=== PATIENT | female | born 1960 | race Caucasian/White ===

== ENCOUNTER → 2019-12-08 | Outpatient (CLI) | payer OTHER ==
[2019-12-08 20:02] LABS: Hematocrit 34.7 % (33.0-51.0); Hemoglobin 10.4 g/dL (11.5-16.0); Mean Corpuscular HGB 24.4 pg (26.0-34.0); Mean Corpuscular Volume 82 fL (80-100); Platelet Count 407 K/mm3 (150-400); RDW Coefficient Variation 17.8 % (11.7-14.2); RDW Standard Deviation 53.2 fL (35.1-46.3); Red Blood Cell Count 4.26 M/mm3 (3.80-5.20); White Blood Cell Count 10.13 K/mm3 (4.00-11.30)
[2019-12-08 20:15] LABS: Alanine Aminotransfer (ALT/SGP 27 U/L (12-78); Albumin/Globulin Ratio 0.7 (0.8-1.8); Alk Phos 102 U/L (50-136); Anion Gap 4 mmol/L (6-16); Aspartate Aminotrans (AST/SGOT 18 U/L (12-37); Bilirubin, Total 0.3 mg/dL (0.1-1.0); Blood Urea Nitrogen 25 mg/dL (8-24); Bun/Creatinine Ratio 29.4 (12.0-20.0); CO2, Blood 32 mmol/L (21-32); Calcium, Blood 8.6 mg/dL (8.5-10.1); Chloride, Blood 107 mmol/L (98-108); Creatinine, Blood 0.85 mg/dL (0.40-1.00); Globulin, Blood 4.3 g/dL (2.2-4.0); Glomerular Filtration Rate >60 (60-); Glucose, Blood 121 mg/dL (70-99); Sodium, Blood 143 mmol/L (136-145); Total Protein, Blood 7.3 g/dL (6.4-8.2)
== END ==
LOC: LAB 19:54 → LAB SHORT 19:54
PROVIDERS: Nurse Practitioner
DX: E11.9 Type 2 diabetes mellitus without complications (principal)
CPT/HCPCS: 80053; 83036; 85027

== ENCOUNTER 2023-03-21 08:00 | Day surgery (SDC) | payer OTHER ==
[~2023-03-21] VITALS: Ht 165.1 cm; Wt 103.8 kg
[~2023-03-21 08:00] MED LIST: ALPR1; ASCO500 PO; Accupril20 MG PO; Amitriptyline H10 MG PO; BACL10 PO; CALCIUM CIT 311 EAC7; CALCIUM CIT 311 EAC7 PO; CIME400 PO; CLOP75 PO; CYAN1000I IM; DICY20 PO; DOCU100 PO; EZET10; FAMO20 PO; FARXIGA10 MG; FERROUS SULFAT325 M3 PO; FURO40 PO; KAPSPARGO SPRIN50 MG PO; LEVSOD75 PO; MULTIPLE VITAM1 EACH PO; NOVOLOG100 UNIT/2; PRAVASTATIN SOD40 MG PO; PREG150 PO; SUCR1 PO; TRAM50 PO; VITAMIN D325 MC3 PO
[2023-03-21 10:42] LABS: Albumin, Blood 3.5 g/dL (3.4-5.0); Albumin/Globulin Ratio 0.9 (0.8-1.8); Bilirubin, Total 0.7 mg/dL (0.1-1.0); Bun/Creatinine Ratio 22.5 (12.0-20.0); Creatinine, Blood 1.2 mg/dL (0.40-1.00); Globulin, Blood 3.9 g/dL (2.2-4.0); Potassium, Blood 4.6 mmol/L (3.5-5.5); Total Protein, Blood 7.4 g/dL (6.4-8.2)
[2023-03-21] MEDS ORDERED: Enalapril Malea20 MG PO (11:17)
[2023-03-21] MEDS ORDERED: METO50ER (11:18)
--- NOTE | 2023-03-21 11:29 | NUR ---
03/21/23 1129 Adamaris Wells CHEM PANEL DRAWN AT 1017, BLOOD GLUCOSE FROM CHEM PANEL 120
--- NOTE | 2023-03-21 14:25 | NUR ---
03/21/23 1425 PILAR YANG TRIAL OFF O2. CURRENTLY 100% ON 10L
--- NOTE | 2023-03-21 14:48 | NUR ---
03/21/23 0969 EDINSON GAO PT UP TO BATHROOM. MIKAEL ASSISTING PT IN BR. PT DENIES PAIN AND NAUSEA. PT IS NON-WT BEARING. PT HAS CRUTCHES AT HOME IN HER RV BUT IS GOING HOME BY DIAL A RIDE. SHE IS GOING TO HAVE DIAL A RIDE ALSO RUN BY HER PHARMACY TO DROP OFF HER RX. SHE HAS NO PLAN ON HOW SHE WILL GET INTO HER RV TO GET HER CRUTCHES OR WHO CAN RAD TECHNOLOGIST HER RX. WE WILL WORK WITH HER TO SEE IF WE CAN COME UP WITH A SOLUTION.
[2023-03-21 15:45] VITALS: BP 153/56
== END 2023-03-21 16:05 | disposition home or self-care (01) ==
LOC: ORSCSDS 08:00
PROVIDERS: Podiatrist Foot & Ankle Surgery
PROC: 0SGM04Z Fusion of Right Metatarsal-Phalangeal Joint with Internal Fixation Device, Open Approach (ICD-10-PCS; principal; 2023-03-21 12:00)
DX: M20.31 Hallux varus (acquired), right foot (principal); I25.10 Atherosclerotic heart disease of native coronary artery without angina pectoris; E10.42 Type 1 diabetes mellitus with diabetic polyneuropathy; Z87.891 Personal history of nicotine dependence; E66.9 Obesity, unspecified; Z68.38 Body mass index [BMI] 38.0-38.9, adult; Z79.899 Other long term (current) drug therapy; Z79.02 Long term (current) use of antithrombotics/antiplatelets; E10.22 Type 1 diabetes mellitus with diabetic chronic kidney disease; I12.9 Hypertensive chronic kidney disease with stage 1 through stage 4 chronic kidney disease, or unspecified chronic kidney disease; N18.2 Chronic kidney disease, stage 2 (mild); Z79.4 Long term (current) use of insulin
CPT/HCPCS: 80053; A9270; C1713; J2704; J2795; J3010; J7120

== ENCOUNTER 2023-12-24 09:12 | Inpatient (IN) | payer OTHER ==
[~2023-12-24] VITALS: Ht 165.1 cm; Wt 101.1 kg
[~2023-12-24 09:12] MED LIST changes: +Enalapril Malea20 MG PO; +METO50ER
[2023-12-24 11:01] LABS: BASOPHILS ABSOLUTE AUTO 0.05 K/mm3 (0.00-0.23); BASOPHILS PERCENT AUTO 1 % (0-2); EOSINOPHILS ABSOLUTE AUTO 0.65 K/mm3 (0.00-0.68); EOSINOPHILS PERCENT AUTO 9 % (0-6); Hematocrit 32.7 % (33.0-51.0); Hemoglobin 10.7 g/dL (11.5-16.0); IMMATURE GRAN ABSOLUTE AUTO 0.02 K/mm3 (0.00-0.10); IMMATURE GRAN PERCENT AUTO 0 % (0-1); LYMPHOCYTES ABSOLUTE AUTO 2.16 K/mm3 (0.84-5.20); LYMPHOCYTES PERCENT AUTO 29 % (21-46); MONOCYTES ABSOLUTE AUTO 0.76 K/mm3 (0.16-1.47); MONOCYTES PERCENT AUTO 10 % (4-13); Mean Corpuscular HGB 29.7 pg (26.0-34.0); Mean Corpuscular HGB Conc 32.7 g/dL (31.5-36.5); Mean Corpuscular Volume 91 fL (80-100); NEUTROPHILS ABSOLUTE AUTO 3.78 K/mm3 (1.96-9.15); NEUTROPHILS PERCENT AUTO 51 % (41-73); Platelet Count 225 K/mm3 (150-400); RDW Coefficient Variation 12.7 % (11.7-14.2); RDW Standard Deviation 42.3 fL (35.1-46.3); White Blood Cell Count 7.42 K/mm3 (4.00-11.30)
[2023-12-24 11:21] LABS: Magnesium, Blood 2.6 mg/dL (1.6-2.4)
[2023-12-24 11:22] LABS: Albumin, Blood 3.3 g/dL (3.4-5.0); Albumin/Globulin Ratio 0.9 (0.8-1.8); Bilirubin, Total 0.5 mg/dL (0.1-1.0); Creatinine, Blood 2.48 mg/dL (0.40-1.00); Globulin, Blood 3.7 g/dL (2.2-4.0); Potassium, Blood 5.1 mmol/L (3.5-5.5)
[2023-12-24 11:33] LABS: Free Thyroxine 1.02 ng/dL (0.70-1.60); Thyroid Stimulating Hormone 2.58 uIU/mL (0.360-4.800)
[2023-12-24] MEDS ORDERED: NS 1,000 ML IV SCH ×2 (11:40→13:15)
[2023-12-24] MEDS ORDERED: Acetaminophen 325 MG TABLET PO PRN (13:20)
[2023-12-24] MEDS ORDERED: NS 1,000 ML IV ONE (13:20)
[2023-12-24] MEDS ORDERED: TraMADol HCl 50 MG Tab PO PRN (13:25)
[2023-12-24 14:56] VITALS: BP 142/53
[2023-12-24] MEDS ORDERED: METO50ER PO (15:21)
[2023-12-24] MEDS ORDERED: ENAL10 PO (15:22)
[2023-12-24] MEDS ORDERED: PRAV20 PO (15:22)
[2023-12-24] MEDS ORDERED: FURO40 PO (15:22)
[2023-12-24] MEDS ORDERED: FAMO20 PO (15:23)
[2023-12-24] MEDS ORDERED: EZET10 PO (15:23)
[2023-12-24] MEDS ORDERED: TRAM50 PO (15:24)
[2023-12-24] MEDS ORDERED: PREG150 PO (15:24)
[2023-12-24] MEDS ORDERED: LEVSOD75 PO (15:25)
[2023-12-24] MEDS ORDERED: LAMO100 PO (15:25)
[2023-12-24] MEDS ORDERED: B-12 COMPL1000 MCG/2 IM (15:26)
[2023-12-24] MEDS ORDERED: Bentyl20 MG PO (15:27)
[2023-12-24] MEDS ORDERED: IRON18 MG PO (15:28)
[2023-12-24] MEDS ORDERED: SUCR1 PO (15:28)
[2023-12-24] MEDS ORDERED: Vitamin C100 M1 (15:29)
[2023-12-24] MEDS ORDERED: VITAMIN D5000 UNIT PO (15:29)
[2023-12-24] MEDS ORDERED: DOCU100 PO (15:30)
[2023-12-24] MEDS ORDERED: MULVITA PO (15:30)
[2023-12-24] MEDS ORDERED: CALCIUM CIT 311 EAC7 PO (15:30)
[2023-12-24] MEDS ORDERED: Betamethasone D30 ML TOP (15:32)
[2023-12-24] MEDS ORDERED: Insulin Human Lispro 100 Units/ML 3ML Syringe SC SCH ×2 (16:30→17:00)
[2023-12-24] MEDS ORDERED: Sucralfate 1 GM Tab PO SCH (17:00)
[2023-12-24 17:37] LABS: Source, Urine Clean Catch
[2023-12-24 17:39] LABS: Appearance, Urine Hazy (Clear); Bilirubin, Urine Neg (Neg); Blood, Urine 1+ (Neg); Color, Urine Yellow (P-Yellow); Glucose Qualitative, Urine Neg (Neg); Ketones, Urine Neg (Neg); Leukocyte Esterase, Urine 2+ (Neg); Nitrite, Urine Pos (Neg); Protein, Urine Neg (Neg); Specific Gravity, Urine 1.015 (1.003-1.022); Urobilinogen, Urine NORM (Normal)
--- NOTE | 2023-12-24 17:46 | NUR ---
MS BERGER WAS ADMITTED TO MEDICAL FROM ER AT 1440HRS. SHE HAS AN INSULIN PUMP ON HER ABDOMEN. PT IS ABLE TO TELL MYSELF AND DR KWON THE SETTINGS AND THERE IS AN DURGA ON HER PHONE FOR IT, BUT THE UNIT ITSELF IS AN OMNIPOD SO DOSAGE CAN NOT BE VISUALISED ON THE PUMP. AT 1545 BLOOD GLUCOSE WAS 46. PT WAS ASYMPTOMOTIC. SHE ATE A SNACK AND RECHECK BLOOD GLUCOSE 30 MINUTES LATER WAS 73 AT [address] KWON DISCUSSED REMOVING THE INSULIN PUMP WITH MS BERGER. PT CONCERNED ABOUT REMOVING THE INSULIN PUMP AND HAVING HIGH/IRREGULAR BLOOD SUGARS. SHE SAID THAT SHE HAD NOT EATEN ALL DAY DUE TO BEING IN THE ER. AFTER DISCUSSION DR KWON AND PT AGREED TO KEEP INSULIN PUMP ON AND PT WILL ALLOW MORE FREQUENT BLOOD GLUCOSE TESTING NEEDED. DR KWON EDUCATED PT THAT THERE IS A RISK FOR HYPOGLYCEMIA WITH THE PUMP GOING, AND NOTED THAT PT WAS ASYMPTOMATIC WITH BLOOD GLUCOSE OF 46. MS BERGER VOICED UNDERSTANDING. MS HICKS IS UNSTEADY WHEN STANDING. SHE WALKS WITH A CANE, SOMETIMES CRUTCHES, SOMETIMES A WALKER AT HOME. SHE HAS BEEN EDUCATED ON FALL PRECAUTIONS, TO CALL FOR ASSISTANCE BEFORE GETTING OUT OF BED, BED ALARM USE. SHE WALKED TO THE BATHROOM WITH RN, WITH WALKER, STANDBY ASSISTANCE. RN STAYED IN ROOM WITH HER. WHEN WALKING BACK TO BED FROM THE BATHROOM SHE HAD A WITNESSED TRIP AND WENT DOWN ONTO HER KNEES. SHE DENIED ANY PAIN FROM THE EVENT. DR KWON WAS NOTIFIED. MS HICKS WAS ABLE TO STAND AND WALK BACK INTO BED WITH THE WALKER AND STAND BY ASSISTANCE. MS HICKS HAS HEALING ABRASIONS ON HER FEET AND LEGS FROM FALLS PRIOR TO ADMISSION. ACK IN BED, BED IN LOW POSITION, CALL LIGHT IN REACH, BED ALARM ON.
[2023-12-24 17:53] LABS: Bacteria Many /hpf; Red Blood Cells, Urine 0-2 /hpf (0-2); Squamous Epithelial Cells Few /hpf (Few)
[2023-12-24 19:16] VITALS: BP 136/65
[2023-12-24 19:44] LABS: Albumin, Blood 2.6 g/dL (3.4-5.0); Anion Gap 9 mmol/L (3-11); Blood Urea Nitrogen 46 mg/dL (8-24); Bun/Creatinine Ratio 22.1 (12.0-20.0); CO2, Blood 22 mmol/L (21-32); Calcium, Blood 8.2 mg/dL (8.5-10.1); Chloride, Blood 117 mmol/L (98-108); Creatinine, Blood 2.08 mg/dL (0.40-1.00); Glomerular Filtration Rate 26 (60-); Glucose, Blood 90 mg/dL (70-99); Phosphorus, Blood 4.2 mg/dL (2.5-4.9); Potassium, Blood 4.7 mmol/L (3.5-5.5); Sodium, Blood 143 mmol/L (136-145)
[2023-12-24] MEDS ORDERED: Pravastatin Sodium 20 MG Tab PO SCH (21:00)
[2023-12-24] MEDS ORDERED: Famotidine 20 MG Tab PO SCH (21:00)
[2023-12-24] MEDS ORDERED: Pregabalin 75 MG Cap PO SCH (21:00)
[2023-12-24] MEDS ORDERED: Dicyclomine HCl 20 MG Tab PO SCH (21:00)
[2023-12-24] MEDS ORDERED: Cetirizine HCl10 MG PO (21:43)
[2023-12-24] MEDS ORDERED: [UNRECOGNIZED DRUG - SUPPLY] SC (21:47)
[2023-12-24] MEDS ORDERED: MUPIROCIN2210 TOP (21:51)
[2023-12-25 02:52] VITALS: BP 122/47
[2023-12-25 05:57] LABS: BASOPHILS ABSOLUTE AUTO 0.03 K/mm3 (0.00-0.23); BASOPHILS PERCENT AUTO 1 % (0-2); EOSINOPHILS ABSOLUTE AUTO 0.47 K/mm3 (0.00-0.68); EOSINOPHILS PERCENT AUTO 8 % (0-6); Hematocrit 27.8 % (33.0-51.0); Hemoglobin 9.1 g/dL (11.5-16.0); IMMATURE GRAN ABSOLUTE AUTO 0.02 K/mm3 (0.00-0.10); IMMATURE GRAN PERCENT AUTO 0 % (0-1); LYMPHOCYTES PERCENT AUTO 33 % (21-46); MONOCYTES ABSOLUTE AUTO 0.59 K/mm3 (0.16-1.47); MONOCYTES PERCENT AUTO 10 % (4-13); Mean Corpuscular HGB 30.2 pg (26.0-34.0); Mean Corpuscular HGB Conc 32.7 g/dL (31.5-36.5); Mean Corpuscular Volume 92 fL (80-100); Mean Platelet Volume 10.1 fL (9.1-12.4); NEUTROPHILS ABSOLUTE AUTO 3.02 K/mm3 (1.96-9.15); NEUTROPHILS PERCENT AUTO 49 % (41-73); Platelet Count 190 K/mm3 (150-400); RDW Coefficient Variation 12.7 % (11.7-14.2); RDW Standard Deviation 42.6 fL (35.1-46.3); Red Blood Cell Count 3.01 M/mm3 (3.80-5.20); White Blood Cell Count 6.13 K/mm3 (4.00-11.30)
[2023-12-25] MEDS ORDERED: Levothyroxine Sodium 0.075 MG Tab PO SCH (06:00)
[2023-12-25 07:19] VITALS: BP 108/45
[2023-12-25] MEDS ORDERED: Ezetimibe 10 MG Tab PO SCH (09:00)
[2023-12-25] MEDS ORDERED: Docusate Sodium 100 MG Cap PO SCH (09:00)
[2023-12-25] MEDS ORDERED: Enoxaparin 30 MG/0.3 ML SYR SC SCH (09:00)
[2023-12-25] MEDS ORDERED: Ascorbic Acid 500 MG Tab PO SCH (09:00)
[2023-12-25] MEDS ORDERED: Metoprolol Succinate 50 MG TABCR PO SCH (09:00)
[2023-12-25] MEDS ORDERED: Ferrous Sulfate 325 MG Tab PO SCH (09:00)
[2023-12-25] MEDS ORDERED: Multivitamins/Minerals TAB PO SCH (09:00)
[2023-12-25] MEDS ORDERED: Clopidogrel Bisulfate 75 MG Tab PO SCH (09:00)
[2023-12-25] MEDS ORDERED: Calcium Citrate 315 MG/Vitamin D 250 IU Tab PO SCH (09:00)
[2023-12-25 14:23] LABS: Bun/Creatinine Ratio 22.1 (12.0-20.0); Calcium, Blood 8.2 mg/dL (8.5-10.1); Creatinine, Blood 1.99 mg/dL (0.40-1.00)
[2023-12-25 15:19] VITALS: BP 156/72
[2023-12-25] MEDS ORDERED: NS 1,000 ML IV SCH (16:35)
[2023-12-25] MEDS ORDERED: Sucralfate 1 GM Tab PO PRN (16:59)
[2023-12-25] MEDS ORDERED: Dicyclomine HCl 20 MG Tab PO PRN (16:59)
--- NOTE | 2023-12-25 17:28 | NUR ---
SHIFT SUMMARY PT UP TO BATHROOM WITH 1 PERSON ASSIST USING FWW. VOIDING LARGE AMOUNTS AT A TIME. UP TO CHAIR THIS AFTERNOON. HOPED TO GO HOME TODAY BUT KIDNEY FUNCTION NEEDS IMPROVEMENT ACCORDING TO MD AND PT NOTIFIED. HAS DENIED PAIN OR NAUSEA THROUGH THE DAY. MEDICATED SELF WITH HER OWN INSULIN PUMP WHEN SHE KNOWS WHAT HER BLOOD GLUCOSE IS.
[2023-12-25 19:23] VITALS: BP 133/56
[2023-12-25] MEDS ORDERED: Insulin Pump Cartridge MISC SC SCH (21:00)
[2023-12-25] MEDS ORDERED: Famotidine 20 MG Tab PO SCH (21:00)
[2023-12-26 02:39] VITALS: BP 142/45
--- NOTE | 2023-12-26 04:37 | NUR ---
END OF SHIFT SUMMARY PT A&O x4, VSS, AFEBRILE. PT ON RA, NO SIGNS OF RESP DISTRESS, RESP RATE EVEN AND UNLABORED. PT HAS NEW IV TO L WRIST RUNNING CONTINUOUS FLUIDS, NS AT 100mL/HR. PT PLEASANT AND COOPERATIVE WITH CARE PROVIDED. PT ADMITTED FOR [facility]. PT HAS A OMNIPOD INSULIN PUMP. PT SELF ADMINISTERS INSULIN ACCORDING TO BLOOD SUGAR READING. PT HAS CBG's AC & HS, AND SHE WOULD LIKE CBG's TO BE DONE WHEN MEALS ARE BROUGHT UP TO HER ROOM. PT'S CBG AT BEDTIME WAS 116. PT REQUESTED A BED TIME SNACK. PT VOIDING WELL, PT IS 1P SBAX WITH FWW SHE HAS FLUIDS RUNNING HAS BEEN FEELING WEAK. PT DENIED ANY PAIN OR DISCOMFORT. PT ABLE TO MAKE HER NEEDS KNOWN. CALL LIGHT WITHIN REACH, WCTM.
[2023-12-26 06:32] LABS: Bun/Creatinine Ratio 20.9 (12.0-20.0); Calcium, Blood 8.4 mg/dL (8.5-10.1); Creatinine, Blood 1.53 mg/dL (0.40-1.00); Potassium, Blood 4.5 mmol/L (3.5-5.5)
[2023-12-26 07:26] VITALS: BP 154/47
[2023-12-26] MEDS ORDERED: Enoxaparin 40 MG/0.4 ML SYR SC SCH (09:00)
--- NOTE | 2023-12-26 11:19 | NUR ---
SHIFT/DISCHARGE SUMMARY: PATIENT A/OX4, CALM, PLEASANT AND COOPERATIVE c CARE. PATIENT DENIES CP/PRESSURE, N/V, SOB AND DIZZINESS. PATIENT HR THIS AM WAS IN LOW 50'S BPM. NOTIFIED DR. KWON DURING PATIENT ROUND THIS AM. PER DR. KWON TO GIVE 25 MG OF PO METOPROLOL INSTEAD OF 75 MG. PATIENT BS THIS AM WAS 97, PER PATIENT SHE ADMINISTERED HERSELF 3.85 UNITS OF INSULIN. VITAL SIGNS REVIEWED. PIV TO R WRIST DC'D BY CARLA ENCINAS. PATIENT DISCHARGE HOME. DISCHARGE INSTRUCTIONS PACKET GIVEN TO PATIENT. EDUCATED PATIENT REGARDING ADMITTING DX'S OF YUMIKO, S/S, [place], AND TO FOLLOW c PCP. PATIENT VERVALIZED UBDERSTANDING AND NO FURTHER QUESTIONS AT THIS TIME. PATIENT HAS NO NEW MEDICATION ORDERED. ALL PATIENT PERSONAL BELONGINGS WERE SENT HOME c THE PATIENT. PATIENT LEFT THE ROOM AT 1115 AND WAS TRANSPORTED VIA WHEELCHAIR BY LAB[facility]ER [employer] TO PATIENT ENTRANCE.
== END 2023-12-26 11:17 | disposition home or self-care (01) | DRG 639 ==
LOC: ER 09:12 → MEDS 09:13 → ENPENDDIS 12-26 08:42 → MEDS 12-26 11:17
PROVIDERS: Physician Assistant; ADMIT Internal Medicine
DX: E10.649 Type 1 diabetes mellitus with hypoglycemia without coma (principal); I12.9 Hypertensive chronic kidney disease with stage 1 through stage 4 chronic kidney disease, or unspecified chronic kidney disease; N17.9 Acute kidney failure, unspecified; E10.22 Type 1 diabetes mellitus with diabetic chronic kidney disease; N18.30 Chronic kidney disease, stage 3 unspecified; E78.5 Hyperlipidemia, unspecified; K58.9 Irritable bowel syndrome, unspecified; K21.9 Gastro-esophageal reflux disease without esophagitis; D50.9 Iron deficiency anemia, unspecified; E03.9 Hypothyroidism, unspecified; I25.10 Atherosclerotic heart disease of native coronary artery without angina pectoris; E10.42 Type 1 diabetes mellitus with diabetic polyneuropathy; Z98.84 Bariatric surgery status; Z90.710 Acquired absence of both cervix and uterus; Z98.890 Other specified postprocedural states; Z90.49 Acquired absence of other specified parts of digestive tract; E86.0 Dehydration; Z96.651 Presence of right artificial knee joint; Z88.2 Allergy status to sulfonamides; Z87.891 Personal history of nicotine dependence; E10.51 Type 1 diabetes mellitus with diabetic peripheral angiopathy without gangrene; D63.1 Anemia in chronic kidney disease; Z88.5 Allergy status to narcotic agent; Z79.02 Long term (current) use of antithrombotics/antiplatelets; Z79.899 Other long term (current) drug therapy; Z79.4 Long term (current) use of insulin; Z79.890 Hormone replacement therapy
CPT/HCPCS: 36415; 76770; 80048; 80053; 80069; 81001; 82947; 83036; 83735; 84439; 84443; 85025; 96360; 99285-25; A9270; G0378; J1650; J7030

== ENCOUNTER 2025-05-09 11:24 | Day surgery (SDC) | payer OTHER ==
[~2025-05-09] VITALS: Ht 165.1 cm; Wt 104.4 kg
[~2025-05-09 11:24] MED LIST changes: +B-12 COMPL1000 MCG/2 IM; +Bentyl20 MG PO; +Betamethasone D30 ML TOP; +Cetirizine HCl10 MG PO; +ENAL10 PO; +EZET10 PO; +IRON18 MG PO; +LAMO100 PO; +Lidocaine HCl 2% 10 ML SDA ONE; +METO50ER PO; +MULVITA PO; +MUPIROCIN2210 TOP; +NS 500 ML IV ONE; +PRAV20 PO; +VITAMIN D5000 UNIT PO; +Vitamin C100 M1; +[UNRECOGNIZED DRUG - SUPPLY] SC
[2025-05-09] MEDS ORDERED: INSULIN AS100 UNIT/7 (12:41)
[2025-05-09] MEDS ORDERED: NS 500 ML IV ONE (12:55)
[2025-05-09] MEDS ORDERED: CeFAZolin Sodium 2,000 MG VIAL ONE (12:57)
--- NOTE | 2025-05-09 13:04 | NUR ---
05/09/25 1304 Sonia Gold LOCAL INJECTION IN PRE OP ON LEFT HAND AT 1305. TOTAL 5ML.
[2025-05-09] MEDS ORDERED: Midazolam HCl 1MG / ML 2ML Vial ONE (13:43)
[2025-05-09 14:17] VITALS: BP 140/62
--- NOTE | 2025-05-09 14:18 | NUR ---
05/09/25 1418 Allison Marino REPORT GIVEN AND CARE TRANSFERRED TO RAFITA ARTEAGA
== END 2025-05-09 14:44 | disposition home or self-care (01) ==
LOC: ORSCSDS 11:24
PROVIDERS: Orthopaedic Surgery
PROC: 0LN80ZZ Release Left Hand Tendon, Open Approach (ICD-10-PCS; principal; 2025-05-09 14:00)
DX: M65.312 Trigger thumb, left thumb (principal); Z79.4 Long term (current) use of insulin; E11.9 Type 2 diabetes mellitus without complications; E78.5 Hyperlipidemia, unspecified; F32.A Depression, unspecified; I10 Essential (primary) hypertension; G47.33 Obstructive sleep apnea (adult) (pediatric); Z79.899 Other long term (current) drug therapy; Z79.02 Long term (current) use of antithrombotics/antiplatelets
CPT/HCPCS: 82947; J0690; J2003; J2250; J2704; J7040